=== PATIENT | female | born 1950 | race Caucasian/White ===

== ENCOUNTER → 2016-12-22 | Outpatient (CLI) | payer OTHER, MEDICARE | LOC: BHFA 09:00 | PROVIDERS: ATTEND Internal Medicine Cardiovascular Disease | DX: R00.0 Tachycardia, unspecified (principal) ==

== ENCOUNTER → 2017-04-17 | Outpatient (CLI) | payer OTHER, MEDICARE ==
[~2017-04-17] MED LIST: IOPAMIDOL (ISOVUE 370) 100 ML BTL IV ONE
== END ==
LOC: FIMAGING 11:49
PROVIDERS: ATTEND Internal Medicine Critical Care Medicine
DX: R06.02 Shortness of breath (principal); I27.20 Pulmonary hypertension, unspecified; R91.1 Solitary pulmonary nodule
CPT/HCPCS: 71275; Q9967

== ENCOUNTER → 2017-10-27 | Outpatient (CLI) | payer OTHER, MEDICARE | LOC: BHFA 10:45 | PROVIDERS: ATTEND Internal Medicine Cardiovascular Disease | DX: I27.20 Pulmonary hypertension, unspecified (principal) ==

== ENCOUNTER → 2017-11-08 | Outpatient (CLI) | payer OTHER, MEDICARE | LOC: FIMAGING 06:57 | PROVIDERS: ATTEND Internal Medicine Cardiovascular Disease | DX: I70.0 Atherosclerosis of aorta (principal); I34.0 Nonrheumatic mitral (valve) insufficiency ==

== ENCOUNTER → 2018-09-11 | Outpatient (CLI) | payer OTHER, MEDICARE | LOC: BHFA 09:30 | PROVIDERS: ATTEND Internal Medicine Cardiovascular Disease | DX: I47.2 Ventricular tachycardia (principal); I38 Endocarditis, valve unspecified; I70.8 Atherosclerosis of other arteries | CPT/HCPCS: 78452; 93017; A9500 ==

== ENCOUNTER → 2018-09-18 | Outpatient (CLI) | payer OTHER, MEDICARE | DX: I38 Endocarditis, valve unspecified (principal) ==